=== PATIENT | female | born 1960 | race Caucasian/White ===

== ENCOUNTER → 2016-09-03 | Outpatient (CLI) | payer OTHER ==
--- NOTE | ~2016-09-03 | MY29 ---
[facility] A Service of [facility] RADIOLOGY TEXT RESULTS PATIENT: BRODY ABDI LOCATION: [facility] : 58 UNIT #: [id number] AGE: [address]: CHRISTIANO VILLAVICENCIO MD SEX: F ORDER DR: [id number] [facility]. [place], [place] [address] [id number] O MR#: [id number] Acc #: [id number] NAME: BRODY ABDI : 1960 SEX: F STUDY DATE/TIME: 09/03/2016 8:37 UNIT: [facility] ROOM: STUDY DESCRIPTION: MY TRELL SCREENING W/ CAD BILAT Attending Physician: Christiano Villavicencio M.D. Referring Physician: Christiano Villavicencio M.D. Ordering Physician: Christiano Villavicencio M.D. Primary Care Physician: Christiano Villavicencio M.D. MEDICAL IMAGING REPORT This report is preliminary unless electronic signature is present EXAM Digital screening mammogram 09/03/2016. HISTORY A 55-year-old woman, unknown family history, adopted. Annual screening. COMPARISON STUDIES Mammograms date to 08/22/2007 with most recent 04/14/2015 FINDINGS Digital imaging of each breast was completed utilizing a two-view examination of each breast in craniocaudal and mediolateral-oblique projections. Review and interpretation of digital mammograms include a second review in conjunction with FDA-approved CAD device. There is a normal parenchymal presentation bilaterally consistent with the patient's age. There are no breast masses imaged and no parenchymal asymmetry is visualized. There are no suspicious microcalcifications and I see no focal architectural disturbance. IMPRESSION Negative screening digital mammogram. One-year followup recommended. Patients over the age of 40 are entered into a reminder system with target due date for the next mammogram. A result letter will also be sent to the patient. BIRADS: 1 Negative Dictated by... [facility] A Service of [facility] RADIOLOGY TEXT RESULTS PATIENT: BRODY ABDI LOCATION: [facility] : 58 UNIT #: [id number] AGE: [address]: CHRISTIANO VILLAVICENCIO MD SEX: F ORDER DR: Spenser Montano M.D. THIS IS AN ELECTRONICALLY VERIFIED REPORT Spenser Montano M.D. at 09/03/2016 1:33 PM MAGO/geoffrey TD: 09/03/2016 12:53 JOB #: [id number] MEDICAL IMAGING REPORT Page 1 of 1 COPY
== END | disposition home or self-care (01) ==
LOC: CWCC 09-02 15:15
DX: Z12.31 Encounter for screening mammogram for malignant neoplasm of breast (principal)
CPT/HCPCS: G0202